=== PATIENT | female | born 1985 | race Caucasian/White ===

== ENCOUNTER 2017-11-09 20:04 | Emergency (ER) | payer SELFPAY ==
[2017-11-09] MEDS ORDERED: HYDROCODONE/APAP 7.5/325 MG TAB ONE (21:10)
[2017-11-09] MEDS ORDERED: LIDOCAINE 1% MPF 2 ML AMPULE ONE (21:43)
[2017-11-09] MEDS ORDERED: CLINDAMYCIN 900MG/D5W 900 MG/50 ML BAG IV ONE (22:27)
[2017-11-09] MEDS ORDERED: CEFTRIAXONE/SWI 1gm 1 GM/10 ML SYR ONE (22:27)
[2017-11-09] MEDS ORDERED: SMZ./TMP. 800/160 MG TABLET ONE (23:30)
--- NOTE | 2017-11-09 23:31 | ER ---
Nurse's Notes [facility] Name: Suzie Muniz Age: 32 yrs Sex: Female : 1985 Arrival Date: 11/09/2017 Time: 20:06 Bed 4 Private MD: Diagnosis: Cellulitis and Abscess of left external Genitalia Presentation: 11/09 20:13 Presenting complaint: Patient states: Patient report having a like boil looking ao infections in her "vagina area" pubic area. Patient report some pus discharge from the area after she quizzed on it. Transition of care: patient was not received from another setting of care. Onset of symptoms is unknown. Risk Assessment: Do you want to hurt yourself or someone else? Patient reports no desire to harm self or others. Initial Sepsis Screen: Does the patient meet any 2 criteria? No. Patient's initial sepsis screen is negative. Does the patient have a suspected source of infection? Yes: Skin breakdown/wound. Care prior to arrival: Medication(s) given: Bactrim 800-160 mg about 0000 this morning. 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 - Social history:: Smoking status: Patient uses tobacco products, denies chronic smoking, but will smoke occasionally, Patient uses alcohol, but reports only rare drinking. Patient/guardian denies using IV drugs. - Ebola Screening: : Patient negative for fever greater than or equal to 101.5 degrees Fahrenheit, and additional compatible Ebola Virus Disease symptoms Patient denies exposure to infectious person Patient denies travel to an Ebola-affected area in the 21 days before illness onset. Screenin:48 Abuse screen: Denies threats or abuse. Denies injuries from another. Nutritional ak1 screening: No deficits noted. Tuberculosis screening: No symptoms or risk factors identified. Fall Risk None identified. Assessment: 20:36 General: Appears distressed, uncomfortable, well groomed, well developed, well tl3 nourished, Behavior is calm, cooperative, appropriate for age. Pain: Complains of pain in left labial abscess. Neuro: No deficits noted. Level of Consciousness is awake, alert, obeys commands, Oriented to person, place, time, situation, Appropriate for age. Cardiovascular: No deficits noted. Respiratory: No deficits noted. Airway is patent Respiratory effort is even, unlabored, Respiratory pattern is regular, symmetrical. GI: No deficits noted. No signs and/or symptoms were reported involving the gastrointestinal system. : Lesions noted. EENT: No deficits noted. No signs and/or symptoms were reported regarding the EENT system. Derm: No deficits noted. No signs and/or symptoms reported regarding the dermatologic system. Musculoskeletal: No deficits noted. No signs and/or symptoms reported regarding the musculoskeletal system. 21:13 Reassessment: Patient appears in no apparent distress at this time. No changes from tl3 previously documented assessment. Patient and/or family updated on plan of care and expected duration. Pain level reassessed. Patient is alert, oriented x 3, equal unlabored respirations, skin warm/dry/pink. 23:04 Reassessment: Patient appears in no apparent distress at this time. No changes from tl3 previously documented assessment. Patient and/or family updated on plan of care and expected duration. Pain level reassessed. Patient is alert, oriented x 3, equal unlabored respirations, skin warm/dry/pink. Clindamycin infusion completed, pt ambulating to RR for urine specimen. Vital Signs: 20:18 BP 113 / 58; Pulse 98; Resp 16; Temp 98.1(TE); Pulse Ox 98% on R/A; Weight 113.4 kg; ao Height 5 ft. 2 in. (157.48 cm) (R); Pain 5/10; 20:36 BP 144 / 94; Pulse 86; Resp 16; Pulse Ox 100% on R/A; tl3 21:13 BP 138 / 45; Pulse 84; Resp 16; Pulse Ox 97% on R/A; tl3 23:04 BP 125 / 58; Pulse 85; Resp 18; Pulse Ox 100% ; tl3 23:37 BP 117 / 76; Pulse 79; Resp 16; Temp 98.3; Pulse Ox 100% ; Pain 4/10; ak1 20:18 Body Mass Index 45.73 (113.40 kg, 157.48 cm) ao ED Course: 20:06 Patient arrived in ED. es 20:17 Triage completed. ao 20:20 Arm band placed on right wrist. Patient placed in an exam room, on a stretcher, on ao pulse oximetry, Patient notified of wait time. 20:24 Joseph Apodaca PA is PHCP. cp 20:24 Marcello Finley MD is Attending Physician. cp 20:36 Hoa Hinton, AURELIA is Primary Nurse. tl3 20:36 Patient has correct armband on for positive identification. Placed in gown. Bed in low tl3 position. Call light in reach. Side rails up X 1. Adult w/ patient. Pulse ox on. NIBP on. 20:36 No provider procedures requiring assistance completed. Patient did not have IV access tl3 during this emergency room visit. 22:08 Assist provider with I \\T\\ D: of an abscess on left labia Set up I\\T\\D tray. Performed by ak 1 Joseph Apodaca PA Culture sent to lab. Wound packed. iodoform gauze, Dressing with 4X4s, tape Patient tolerated well. 22:23 Inserted saline lock: 22 gauge in right wrist, using aseptic technique. ak1 23:29 Aixa Devlin MD is Referral Physician. cp 23:29 Referral Physician role handed off by Aixa Devlin MD cp 23:29 Vannessa Gallo MD is Referral Physician. cp Administered Medications: 21:13 Drug: [place] (7.5 mg-325 mg) 1 tabs Route: PO; tl3 22:32 Follow up: Response: No adverse reaction ak1 22:32 Drug: Clindamycin 900 mg Route: IVPB; Infused Over: 30 mins; Site: right wrist; ak1 23:03 Follow up: IV Status: Completed infusion; IV Intake: 50ml tl3 22:32 Drug: Rocephin - (cefTRIAXone) 1 grams Route: IVPB; Infused Over: 30 mins; Site: right ak1 wrist; 23:04 Follow up: Response: No adverse reaction; IV Status: Completed infusion; IV Intake: [id number] 23:36 Drug: Bactrim 160 mg-800 mg (DS) 2 tabs Route: PO; ak1 23:40 Follow up: Response: No adverse reaction ak1 Intake: 23:03 IV: 50ml; Total: 50ml. tl3 23:04 IV: 20ml; Total: 70ml. tl3 Outcome: 23:31 Discharge ordered by MD. leo 23:38 Discharged to home ambulatory, with family. ak1 23:38 Condition: good 23:38 Discharge instructions given to patient, Instructed on discharge instructions, follow up and referral plans. no drinking with medication, no driving heavy equipment, medication usage, wound care, Demonstrated understanding of instructions, follow-up care, medications, wound care, Prescriptions given X 3. 23:46 Patient left the ED. ak1 Addendum: 11/13/2017 08:36 Addendum: Culture Results: Positive urine culture. No further action required. Bacteria s s sensitive to prescribed antibiotic. Signatures: Madeleine Jones Shelby, RN RN Alecia Franklin RN RN ak1 Joseph Apodaca PA PA cp Ortiz, Alex RN Hoa Will RN RN tl3
--- NOTE | 2017-11-09 23:32 | EDPHYS ---
Physician Documentation [facility] Name: Suzie Muniz Age: 32 yrs Sex: Female : 1985 Arrival Date: 11/09/2017 Time: 20:06 Bed 4 Private MD: ANA Physician Marcello Finley HPI: 11/09 20:45 This 32 yrs old Female presents to ER via Ambulatory with complaints of cp POSSIBLE STAFF INFECTION. 20:45 The patient presents with an abscess of the left external genitalia, The patient cp presents with cellulitis of the left external genitalia. 20:45 Description: erythematous, swollen, warm. cp 20:45 Onset: The symptoms/episode began/occurred 2-3 days ago. cp 20:45 Associated signs and symptoms: Pertinent positives: drainage, Pertinent negatives: cp fever. Patient reports she was able to express discharge from area. 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 - Social history:: Smoking status: Patient uses tobacco products, denies chronic smoking, but will smoke occasionally, Patient uses alcohol, but reports only rare drinking. Patient/guardian denies using IV drugs. - Ebola Screening: : Patient negative for fever greater than or equal to 101.5 degrees Fahrenheit, and additional compatible Ebola Virus Disease symptoms Patient denies exposure to infectious person Patient denies travel to an Ebola-affected area in the 21 days before illness onset. ROS: 20:52 Constitutional: Negative for body aches, chills, fever, poor PO intake. cp 20:52 Eyes: Negative for injury, pain, redness, and discharge. cp 20:52 ENT: Negative for drainage from ear(s), ear pain, sore throat, difficulty swallowing, difficulty handling secretions. 20:52 Cardiovascular: Negative for chest pain, edema, palpitations. 20:52 Respiratory: Negative for cough, shortness of breath, wheezing. 20:52 Abdomen/GI: Negative for abdominal pain, nausea, vomiting, and diarrhea. 20:52 : Negative for urinary symptoms, vaginal bleeding, vaginal discharge. 20:52 Skin: Positive for abscess, cellulitis, of the left external genitalia. 20:52 Neuro: Negative for altered mental status, headache, weakness. 20:52 All other systems are negative. Exam: 20:58 Constitutional: The patient appears in no acute distress, alert, awake, non-toxic, well cp developed, well nourished, obese. 20:58 Head/Face: Normocephalic, atraumatic. cp 20:58 Eyes: Periorbital structures: appear normal, Conjunctiva: normal, no exudate, no injection, Lids and lashes: appear normal, bilaterally. 20:58 ENT: External ear(s): are unremarkable, Nose: is normal, Mouth: is normal, Posterior pharynx: is normal, airway is patent. 20:58 Neck: ROM/movement: is normal, is supple, without pain, no range of motions limitations, no nuchal rigidity. 20:58 Chest/axilla: Inspection: normal. 20:58 Cardiovascular: Rate: normal, Rhythm: regular. 20:58 Respiratory: the patient does not display signs of respiratory distress, Respirations: normal, no use of accessory muscles, no retractions, no splinting, no tachypnea, labored breathing, is not present, Breath sounds: are clear throughout, no decreased breath sounds, no wheezing. 20:58 Abdomen/GI: Inspection: obese Palpation: abdomen is soft and non-tender, in all quadrants, rebound tenderness, is not appreciated, voluntary guarding, is not appreciated, involuntary guarding, is not appreciated. 20:58 Back: pain, is absent, ROM is normal. 20:58 Musculoskeletal/extremity: Exam is negative for edema, injury. 20:58 Skin: abscess, of the left external genitalia, with surrounding cellulitis, that is mild. 20:58 Neuro: Orientation: to person, place \T\ time. Mentation: lucid, able to follow commands, Cerebellar function: is grossly normal, Motor: moves all fours, strength is normal, Sensation: no obvious gross deficits. Vital Signs: 20:18 BP 113 / 58; Pulse 98; Resp 16; Temp 98.1(TE); Pulse Ox 98% on R/A; Weight 113.4 kg; ao Height 5 ft. 2 in. (157.48 cm) (R); Pain 5/10; 20:36 BP 144 / 94; Pulse 86; Resp 16; Pulse Ox 100% on R/A; tl3 21:13 BP 138 / 45; Pulse 84; Resp 16; Pulse Ox 97% on R/A; tl3 23:04 BP 125 / 58; Pulse 85; Resp 18; Pulse Ox 100% ; tl3 23:37 BP 117 / 76; Pulse 79; Resp 16; Temp 98.3; Pulse Ox 100% ; Pain 4/10; ak1 20:18 Body Mass Index 45.73 (113.40 kg, 157.48 cm) ao Procedures: 23:15 I \T\ D: Incision and drainage was performed for an abscess of the left external cp genitalia Prepped with Betadine, Anesthetized with 5 ccs of 50/50 mixture 1% lidocaine w/o epi and 0.5% marcaine. Incised with #11 blade. Drained small amount purulent fluid. bloody fluid. Cultures obtained. Abscess cavity explored. Packed with iodoform gauze, Dressing: sterile 4x4 gauze, the patient tolerated the procedure well. MDM: 20:24 Patient medically screened. cp 22:15 Differential diagnosis: abscess, cellulitis, Ina's gangrene, sepsis, STD. cp 23:30 Data reviewed: vital signs, nurses notes, and as a result, I will discharge patient. cp 23:30 Counseling: I had a detailed discussion with the patient and/or guardian regarding: the cp historical points, exam findings, and any diagnostic results supporting the discharge/admit diagnosis, the need for outpatient follow up, an OB/Gyne specialist, to return to the emergency department if symptoms worsen or persist or if there are any questions or concerns that arise at home. Response to treatment: the patient's symptoms have mildly improved after treatment, and as a result, I will discharge patient. ED course: VSS. I\T\D performed as noted. Pain improved. Will discharge to home for continued monitoring. 11/09 21:13 Order name: Wound Culture cp 11/09 23:24 Order name: Urine Dipstick--Ancillary (enter results) ms 11/09 23:24 Order name: Urine --Ancillary (enter results) ms 11/09 22:04 Order name: Urine Test (obtain specimen); Complete Time: 23:35 cp 06/03 22:04 Order name: IV; Complete Time: 22:32 cp Administered Medications: 21:13 Drug: [place] (7.5 mg-325 mg) 1 tabs Route: PO; tl3 22:32 Follow up: Response: No adverse reaction ak1 22:32 Drug: Clindamycin 900 mg Route: IVPB; Infused Over: 30 mins; Site: right wrist; ak1 23:03 Follow up: IV Status: Completed infusion; IV Intake: 50ml tl3 22:32 Drug: Rocephin - (cefTRIAXone) 1 grams Route: IVPB; Infused Over: 30 mins; Site: right ak1 wrist; 23:04 Follow up: Response: No adverse reaction; IV Status: Completed infusion; IV Intake: [id number] 23:36 Drug: Bactrim 160 mg-800 mg (DS) 2 tabs Route: PO; ak1 23:40 Follow up: Response: No adverse reaction ak1 Disposition: 11/09/17 23:31 Discharged to Home. Impression: Cellulitis and Abscess of left external Genitalia. - Condition is Stable. - Discharge Instructions: Cellulitis, Vulvar Abscess, [id number]. - Prescriptions for Clindamycin HCl 300 mg Oral Capsule - take 1 capsule by ORAL route every 6 hours for 10 days; 40 capsule. Tylenol- Codeine #3 300-30 mg Oral Tablet - take 2 tablets by ORAL route every 6 hours As needed; 20 tablet. Bactrim DS 800- 160 mg Oral Tablet - take 1 tablet by ORAL route every 12 hours for 10 days; 20 tablet. - Medication Reconciliation Form, Thank You Letter, Antibiotic Education, Prescription Opioid Use form. - Follow up: Aixa Devlin MD; When: 48 Hours; Reason: Wound Recheck. Follow up: Vannessa Gallo MD; When: 48 Hours; Reason: Wound Recheck. - Problem is new. - Symptoms have improved. Addendum: 11/11/2017 06:29 Co-signature as Attending Physician, Marcello Finley MD I agree with the assessment and t w4 plan of care. Signatures: Dispatcher [employer] Alecia Piedra RN RN ak1 Joseph Apodaca PA PA cp Ortiz, Alex, RN RN ao Wadley, Terrence, MD MD tw4 [place], Hoa, RN RN tl3 Corrections: (The following items were deleted from the chart) 11/09 23:46 23:31 11/09/2017 23:31 Discharged to Home. Impression: Cellulitis and Abscess of left ak1 external Genitalia. Condition is Stable. Forms are Medication Reconciliation Form, Thank You Letter, Antibiotic Education, Prescription Opioid Use. Follow up: Vannessa Gallo; When: 48 Hours; Reason: Wound Recheck. Problem is new. Symptoms have improved. cp
[2017-11-09 23:44] LABS: Urine Blood 2+ (NEG); Urine Glucose NEGATIVE (NEG); Urine Protein NEGATIVE (NEG); Urine Specific Gravity 1.025 (1.005-1.030)
== END 2017-11-09 23:46 | disposition home or self-care (01) ==
LOC: ER 20:04
PROC: 0U9MXZZ Drainage of Vulva, External Approach (ICD-10-PCS; principal; 2017-11-09)
DX: N76.4 Abscess of vulva (principal); Z88.8 Allergy status to other drugs, medicaments and biological substances; Z72.0 Tobacco use
CPT/HCPCS: 81003; 81025; 87070; 87077; 87186; 87205; 96365; 96368; 99284; J0696; J2001

== ENCOUNTER 2018-09-04 11:37 | Emergency (ER) | payer SELFPAY ==
--- NOTE | 2018-09-04 12:59 | EDPHYS ---
Physician Documentation [facility] Name: Suzie Muniz Age: 33 yrs Sex: Female : 1985 Arrival Date: 09/04/2018 Time: 11:41 Bed Treatment Private MD: ED Physician Maxwell Live HPI: 09/04 12:55 This 33 yrs old Female presents to ER via Ambulatory with complaints of Nose kb Pain. 12:55 The patient presents with pain, redness and swelling. The patient has not experienced kb similar symptoms in the past. 12:57 Onset: The symptoms/episode began/occurred yesterday. Modifying factors: The symptoms kb are alleviated by nothing. the symptoms are aggravated by touching nose. Associated signs and symptoms: The patient has no apparent associated signs or symptoms, Loss of consciousness: the patient experienced no loss of consciousness. Severity of symptoms: At their worst the symptoms were moderate in the emergency department the symptoms are unchanged. The patient has not recently seen a physician. 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 - Social history:: Smoking status: Patient uses tobacco products. - Ebola Screening: : Patient negative for fever greater than or equal to 101.5 degrees Fahrenheit, and additional compatible Ebola Virus Disease symptoms Patient denies exposure to infectious person Patient denies travel to an Ebola-affected area in the 21 days before illness onset No symptoms or risks identified at this time. ROS: 12:55 Constitutional: Negative for fever, chills, and weight loss, Cardiovascular: Negative kb for chest pain, palpitations, and edema, Respiratory: Negative for shortness of breath, cough, wheezing, and pleuritic chest pain, Abdomen/GI: Negative for abdominal pain, nausea, vomiting, diarrhea, and constipation, MS/Extremity: Negative for injury and deformity, Neuro: Negative for headache, weakness, numbness, tingling, and seizure. 12:55 Skin: Positive for erythema, swelling, of the nose. Exam: 12:54 Constitutional: This is a well developed, well nourished patient who is awake, alert, kb and in no acute distress. Head/Face: Normocephalic, atraumatic. Chest/axilla: Normal chest wall appearance and motion. Nontender with no deformity. No lesions are appreciated. Cardiovascular: Regular rate and rhythm with a normal S1 and S2. No gallops, murmurs, or rubs. Normal PMI, no JVD. No pulse deficits. Respiratory: Lungs have equal breath sounds bilaterally, clear to auscultation and percussion. No rales, rhonchi or wheezes noted. No increased work of breathing, no retractions or nasal flaring. Abdomen/GI: Soft, non-tender, with normal bowel sounds. No distension or tympany. No guarding or rebound. No evidence of tenderness throughout. MS/ Extremity: Pulses equal, no cyanosis. Neurovascular intact. Full, normal range of motion. Neuro: Awake and alert, GCS 15, oriented to person, place, time, and situation. Cranial nerves II-XII grossly intact. Motor strength 5/5 in all extremities. Sensory grossly intact. Cerebellar exam normal. Normal gait. 12:54 Skin: cellulitis, that is mild, on the nose. Vital Signs: 11:41 Pulse 74; Resp 18; Temp 98.2; Pulse Ox 99% on R/A; Weight 130.18 kg (R); Height 5 ft. sg 11 in. (180.34 cm); Pain 8/10; 11:43 BP 122 / 51; sg 11:41 Body Mass Index 40.03 (130.18 kg, 180.34 cm) sg MDM: 12:37 Patient medically screened. kb 12:54 Data reviewed: vital signs, nurses notes. Data interpreted: Pulse oximetry: on room air kb is 99 %. Interpretation: normal. Counseling: I had a detailed discussion with the patient and/or guardian regarding: the historical points, exam findings, and any diagnostic results supporting the discharge/admit diagnosis, the need for outpatient follow up, a family practitioner, to return to the emergency department if symptoms worsen or persist or if there are any questions or concerns that arise at home. Administered Medications: 13:10 Drug: Bactrim (160 mg-800 mg (DS) 1 tablet Route: PO; iw 13:10 Drug: [place] (7.5 mg-325 mg) 1 tabs Route: PO; Disposition: 15:15 Co-signature as Attending Physician, Maxwell Live MD. rn Disposition: 09/04/18 12:58 Discharged to Home. Impression: Local infection of the skin and subcutaneous tissue, unspecified. - Condition is Stable. - Discharge Instructions: Cellulitis, Adult, [id number]-Hmgt. - Prescriptions for Bactrim DS 800- 160 mg Oral Tablet - take 1 tablet by ORAL route every 12 hours for 10 days; 20 tablet. - Medication Reconciliation Form, Thank You Letter, Antibiotic Education, Prescription Opioid Use form. - Follow up: Emergency Department; When: As needed; Reason: Worsening of condition. Follow up: Private Physician; When: 2 - 3 days; Reason: Recheck today's complaints, Continuance of care, Re-evaluation by your physician. Signatures: Katelyn Menendez, HAN-C GUEST SERVICES ASSOCIATE-Edmond Kwong RN RN sg Radha Barraza RN RN iw Nieto, Roman, MD MD customer experience intern: (The following items were deleted from the chart) 13:47 12:58 09/04/2018 12:58 Discharged to Home. Impression: Local infection of the skin and iw subcutaneous tissue, unspecified. Condition is Stable. Forms are Medication Reconciliation Form, Thank You Letter, Antibiotic Education, Prescription Opioid Use. Follow up: Emergency Department; When: As needed; Reason: Worsening of condition. Follow up: Private Physician; When: 2 - 3 days; Reason: Recheck today's complaints, Continuance of care, Re-evaluation by your physician. kb
--- NOTE | 2018-09-04 12:59 | ER ---
Nurse's Notes [facility] Name: Suzie Muniz Age: 33 yrs Sex: Female : 1985 Arrival Date: 09/04/2018 Time: 11:41 Bed Treatment Private MD: Diagnosis: Local infection of the skin and subcutaneous tissue, unspecified Presentation: 09/04 11:43 Presenting complaint: Patient states: reports painful bumps on the inside of the nose, sg painful. Transition of care: patient was not received from another setting of care. Onset of symptoms was September 04, 2018. Risk Assessment: Do you want to hurt yourself or someone else? Patient reports no desire to harm self or others. Initial Sepsis Screen: Does the patient meet any 2 criteria? No. Patient's initial sepsis screen is negative. Does the patient have a suspected source of infection? No. Patient's initial sepsis screen is negative. Care prior to arrival: None. 11:43 Method Of Arrival: Ambulatory sg 11:43 Acuity: ALENA 4 sg Triage Assessment: 13:00 General: Appears in no apparent distress. Behavior is calm, cooperative. 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 - Social history:: Smoking status: Patient uses tobacco products. - Ebola Screening: : Patient negative for fever greater than or equal to 101.5 degrees Fahrenheit, and additional compatible Ebola Virus Disease symptoms Patient denies exposure to infectious person Patient denies travel to an Ebola-affected area in the 21 days before illness onset No symptoms or risks identified at this time. Screenin:00 Abuse screen: Denies threats or abuse. Denies injuries from another. Nutritional iw screening: No deficits noted. Tuberculosis screening: No symptoms or risk factors identified. Fall Risk None identified. Assessment: 13:00 General: Appears in no apparent distress. Behavior is calm, cooperative. Pain: iw Complains of pain in nose. Neuro: Level of Consciousness is awake, alert, obeys commands, Oriented to person, place, time, Moves all extremities. Cardiovascular: Patient's skin is warm and dry. Respiratory: Respiratory effort is even, unlabored, Respiratory pattern is regular. Derm: Skin is intact, is healthy with good turgor. Musculoskeletal: Range of motion: intact in all extremities. Vital Signs: 11:41 Pulse 74; Resp 18; Temp 98.2; Pulse Ox 99% on R/A; Weight 130.18 kg (R); Height 5 ft. sg 11 in. (180.34 cm); Pain 8/10; 11:43 BP 122 / 51; sg 11:41 Body Mass Index 40.03 (130.18 kg, 180.34 cm) sg ED Course: 11:41 Patient arrived in ED. sg 11:41 Arm band placed on. sg 11:44 Triage completed. sg 11:45 Katelyn Menendez FNP-C is [facility]. kb 11:45 Maxwell Live MD is Attending Physician. kb 11:45 Patient has correct armband on for positive identification. iw 12:37 Radha Barraza, RN is Primary Nurse. iw 13:46 No provider procedures requiring assistance completed. Patient did not have IV access iw during this emergency room visit. Administered Medications: 13:10 Drug: Bactrim (160 mg-800 mg (DS) 1 tablet Route: PO; iw 13:10 Drug: [place] (7.5 mg-325 mg) 1 tabs Route: PO; iw Outcome: 12:58 Discharge ordered by MD. kb 13:46 Discharged to home ambulatory. iw 13:46 Condition: good 13:46 Discharge instructions given to patient, Instructed on discharge instructions, follow up and referral plans. medication usage, Demonstrated understanding of instructions, follow-up care, medications, Prescriptions given X 1. 13:47 Patient left the ED. iw Signatures: Katelyn Menendez FNP-C FNP-Ckb Gay, Steven, RN RN sg Radha Barraza RN RN iw
[2018-09-04] MEDS ORDERED: SMZ./TMP. 800/160 MG TABLET ONE (13:15)
[2018-09-04] MEDS ORDERED: HYDROCODONE/APAP 7.5/325 MG TAB ONE (13:16)
== END 2018-09-04 13:47 | disposition home or self-care (01) ==
LOC: ER 11:37
DX: L08.9 Local infection of the skin and subcutaneous tissue, unspecified (principal); Z72.0 Tobacco use; Z88.6 Allergy status to analgesic agent
CPT/HCPCS: 99283

== ENCOUNTER 2018-12-05 16:35 | Emergency (ER) | payer SELFPAY ==
--- OUTSIDE RECORDS SUMMARY | 2018-12-05 16:37 | XMS REPORT ---
:1985 [facility] [address] [place] [address] Care Team Providers Name Role Phone Unavailable Unavailable Unavailable Problems This patient has no known problems. Allergies, Adverse Reactions, Alerts This patient has no known allergies or adverse reactions. Medications This patient has no known medications.
--- NOTE | 2018-12-05 16:59 | ER ---
Nurse's Notes [facility] Name: Suzie Muniz Age: 33 yrs Sex: Female : 1985 Arrival Date: 12/05/2018 Time: 16:37 Bed 24 Private MD: Diagnosis: Dental Pain;Dental caries Presentation: 12/05 16:39 Presenting complaint: Patient states: "I have an abscessed tooth" Reports that she aj1 started having pain one hour ago. Transition of care: patient was not received from another setting of care. Onset of symptoms was December 05, 2018. Risk Assessment: Do you want to hurt yourself or someone else? Patient reports no desire to harm self or others. Initial Sepsis Screen: Does the patient meet any 2 criteria? No. Patient's initial sepsis screen is negative. Does the patient have a suspected source of infection? No. Patient's initial sepsis screen is negative. Care prior to arrival: None. 16:39 Method Of Arrival: Ambulatory [facility] 16:39 Acuity: ALENA 4 aj1 Triage Assessment: 16:40 General: Appears in no apparent distress. uncomfortable, Behavior is calm, cooperative, aj1 appropriate for age. Pain: Complains of pain in mouth Pain currently is 7 out of 10 on a pain scale. EENT: Reports toothache. Neuro: Level of Consciousness is awake, alert, obeys commands. Cardiovascular: Patient's skin is warm and dry. Respiratory: Airway is patent Respiratory effort is even, unlabored, Respiratory pattern is regular, symmetrical. 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 - Social history:: Smoking status: Patient uses tobacco products, 3-4 cigarettes per day. - Ebola Screening: : Patient denies travel to an Ebola-affected area in the 21 days before illness onset. Screenin:49 Abuse screen: Denies threats or abuse. Nutritional screening: No deficits noted. la1 Tuberculosis screening: No symptoms or risk factors identified. Fall Risk None identified. Assessment: 16:49 Reassessment: Patient is alert, oriented x 3, equal unlabored respirations, skin la1 warm/dry/pink. Pain: Complains of pain in lower right third molar. Vital Signs: 16:40 BP 150 / 71; Pulse 86; Resp 18; Temp 97.9; Pulse Ox 100% on R/A; Weight 127.01 kg (R); aj1 Height 5 ft. 10 in. (177.80 cm) (R); Pain 7/10; 16:40 Body Mass Index 40.18 (127.01 kg, 177.80 cm) 1 ED Course: 16:37 Patient arrived in ED. as 16:39 Triage completed. aj1 16:40 Arm band placed on Patient placed in an exam room. aj 16:42 Nolan Leung RN is Primary Nurse. la1 16:43 Nelson Villalta PA is PHCP. [facility] 16:43 Maxwell Live MD is Attending Physician. [facility] 16:43 PHCP role handed off by Nelson Villalta PA pm 16:43 Jacob Soria NP is PHCP. pm1 16:46 PHCP role handed off by Jacob Soria NP [facility] 16:46 Nelson Villalta PA is PHCP. [facility] 16:49 Call light in reach. Side rails up X 1. la1 16:50 No provider procedures requiring assistance completed. Patient did not have IV access la1 during this emergency room visit. Administered Medications: No medications were administered Outcome: 16:50 Discharged to home ambulatory. la1 16:50 Condition: stable 16:50 Discharge instructions given to patient, Instructed on discharge instructions, follow up and referral plans. medication usage, Demonstrated understanding of instructions, follow-up care, medications, Prescriptions given X 1. 16:59 Discharge ordered by . [facility] 17:05 Patient left the ED. la1 Signatures: Shanel Murdock RN RN aj Nelson Villalta PA PA jmm Martinez, Amelia as Attema, Lee, RN RN la Jacob Soria NP DOCUMENT CONTROL SPECIALIST pm1
--- NOTE | 2018-12-05 17:00 | EDPHYS ---
Physician Documentation [facility] Name: Suzie Muniz Age: 33 yrs Sex: Female : 1985 Arrival Date: 12/05/2018 Time: 16:37 Bed 24 Private MD: ED Physician Maxwell Live HPI: 12/05 16:51 This 33 yrs old Female presents to ER via Ambulatory with complaints of jmm Toothache. 16:51 The patient presents with broken tooth/teeth, pain. Onset: The symptoms/episode jmm began/occurred acutely, 1 hour(s) ago. Modifying factors: The symptoms are alleviated by nothing, the symptoms are aggravated by chewing. Associated signs and symptoms: Pertinent positives: pain, Pertinent negatives: fever, swelling. This is a 33 year old female with no chronic medical conditions that presents to the ED with complaints of right molar pain beginning approx 1 hour. Patient denies fever, denies swelling. . 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 - Social history:: Smoking status: Patient uses tobacco products, 3-4 cigarettes per day. - Ebola Screening: : Patient denies travel to an Ebola-affected area in the 21 days before illness onset. ROS: 16:51 Constitutional: Negative for fever, chills, and weight loss. jmm 16:51 Neck: Negative for injury, pain, and swelling, Cardiovascular: Negative for chest pain, palpitations, and edema, Respiratory: Negative for shortness of breath, cough, wheezing, and pleuritic chest pain. 16:51 ENT: Positive for dental pain. 16:51 Neuro: Negative for headache. 16:51 All other systems are negative. Exam: 16:51 Constitutional: This is a well developed, well nourished patient who is awake, alert, jmm and in no acute distress. Head/Face: atraumatic. Eyes: EOMI, no conjunctival erythema appreciated 16:51 Neck: Trachea midline, Supple Chest/axilla: Normal chest wall appearance and motion. Cardiovascular: Regular rate and rhythm. No edema appreciated Respiratory: Normal respirations, no respiratory distress appreciated Abdomen/GI: Non distended, soft Back: Normal ROM Skin: General appearance color normal MS/ Extremity: Moves all extremities, no obvious deformities appreciated, no edema noted to the lower extremities Neuro: Awake and alert, normal gait Psych: Behavior is normal, Mood is normal, Patient is cooperative and pleasant 16:51 ENT: Dental exam: dental caries, that is moderate, specifically in the lower left third molar (#17), lower left second molar (#18) and lower right third molar (#32), fractured teeth are noted, specifically the lower right third molar (#32), gum swelling, not appreciated. Vital Signs: 16:40 BP 150 / 71; Pulse 86; Resp 18; Temp 97.9; Pulse Ox 100% on R/A; Weight 127.01 kg (R); aj1 Height 5 ft. 10 in. (177.80 cm) (R); Pain 7/10; 16:40 Body Mass Index 40.18 (127.01 kg, 177.80 cm) aj1 MDM: 16:50 Patient medically screened. [facility] 16:54 Data reviewed: vital signs, nurses notes. Counseling: I had a detailed discussion with [facility] the patient and/or guardian regarding: the historical points, exam findings, and any diagnostic results supporting the discharge/admit diagnosis, the need for outpatient follow up, to return to the emergency department if symptoms worsen or persist or if there are any questions or concerns that arise at home. ED course: Patient is alert and non toxic in appearance. I do not suspect ludwigs. Patient is advised to follow up with dentist. Patient is otherwise given strict return precautions. Patient understood and agrees with the plan of care. . Administered Medications: No medications were administered Disposition: 18:32 Co-signature as Attending Physician, Maxwell Live MD. rn Disposition: 12/05/18 16:59 Discharged to Home. Impression: Dental Pain, Dental caries. - Condition is Stable. - Discharge Instructions: Dental Pain. - Prescriptions for penicillin V potassium 500 mg Oral tablet - take 1 tablet by ORAL route every 6 hours; 40 tablet. Ultracet 37.5- 325 mg Oral Tablet - take 1 tablet by ORAL route every 6 hours - for up to 5 days; do not exceed 8 tablets per day.; 12 tablet. - Medication Reconciliation Form, Thank You Letter, Antibiotic Education, Prescription Opioid Use form. - Follow up: Private Physician; When: 2 - 3 days; Reason: Recheck today's complaints, Continuance of care, Re-evaluation by your physician. Signatures: Shanel Murdock RN RN aj1 Nelson Villalta PA PA [facility] Maxwell Live MD MD rn Attema, Lee, RN RN la1 Corrections: (The following items were deleted from the chart) 16:59 16:59 12/05/2018 16:59 Discharged to Home. Impression: Dental Pain. Condition is [facility] Stable. Forms are Medication Reconciliation Form, Thank You Letter, Antibiotic Education, Prescription Opioid Use. Follow up: Private Physician; When: 2 - 3 days; Reason: Recheck today's complaints, Continuance of care, Re-evaluation by your physician. [facility] 17:05 16:59 12/05/2018 16:59 Discharged to Home. Impression: Dental Pain; Dental caries. la1 Condition is Stable. Forms are Medication Reconciliation Form, Thank You Letter, Antibiotic Education, Prescription Opioid Use. Follow up: Private Physician; When: 2 - 3 days; Reason: Recheck today's complaints, Continuance of care, Re-evaluation by your physician. [facility]
== END 2018-12-05 17:05 | disposition home or self-care (01) ==
LOC: ER 16:35
DX: K02.9 Dental caries, unspecified (principal); Z72.0 Tobacco use; Z88.8 Allergy status to other drugs, medicaments and biological substances
CPT/HCPCS: 99282